=== PATIENT | male | born 1940 | race Caucasian/White ===

== ENCOUNTER → 2023-10-24 09:19 | Outpatient (REF) | payer OTHER, SELFPAY | LOC: RAD 09:19 | PROVIDERS: ATTENDING PHYSICIAN Emergency Medicine | DX: M25.552 Pain in left hip (principal); M54.50 Low back pain, unspecified | CPT/HCPCS: 72110; 73502 ==

== ENCOUNTER → 2023-11-02 14:15 | Outpatient (REF) | payer OTHER, SELFPAY | LOC: PAVMRI 14:15 | PROVIDERS: ATTENDING PHYSICIAN Physical Medicine & Rehabilitation; FAMILY PHYSICIAN Emergency Medicine | DX: M54.16 Radiculopathy, lumbar region (principal) | CPT/HCPCS: 72148 ==

== ENCOUNTER 2023-12-15 08:38 | Emergency (ER) | payer OTHER, SELFPAY ==
[2023-12-15 08:40] VITALS: BP 144/86
--- NOTE | 2023-12-15 09:43 | ED.GENMED ---
History of Present Illness
<Maria Teresa Rodriguez PA-C - Last Filed: 12/16/23 07:16>
General
Chief Complaint: Chest Pain
Source: patient
Exam Limitations: none
Time Seen by Provider: 12/15/23 09:17
Nursing documentation reviewed up to this point in time: agreed with
Travel History
Have you had any contact with someone who has COVID-19?: No
Do you have any symptoms of coronavirus? Fever > 100 degrees, chills, cough, shortness of breath, sore throat, loss of taste or smell, muscle aches, or headache?: No
History of Present Illness
History of Present Illness:
pt is a 83 y/o M with h/o CAD s/p stents 10+ years ago, afib chronically s/p watchman, no anticoagulation
dvt in past
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
here with right sided chest pain to back which started 6 am
pt was already awake when pain began. it is worse with palpiation slightly; it comes and goes but has undrelying mild constant discomfort
no nausea, diaphoresis, sob, leg swelling, syncope, fever,, cough
has had chest pains previously and thinks this is different
went to and was sent here
took full dose asa this morning
Past History
<Maria Teresa Rodriguez PA-C - Last Filed: 12/16/23 07:16>
Past History
ED Past Medical History: Arrthythmia (PAF), CAD, GERD, HTN, Hypercholesterolemia, NIDDM and Other (pancreatitis)
ED Past Surgical History: Cardiac (Stent X2, watchman procedure), Cholecystectomy, Orthopedic (b/l rotator cuff repairs, Herniated disc repair) and Other ( subtotal thyroidectomy (left), left cataract sx, L4/L5 disc surgery)
Patient has exhibited threatening behavior?: No
PSI?: No
Social History
Tobacco: Former smoker
Alcohol: None
Drug: None
Personal:
Living: with family
Family History
Family History: Other
Review of Systems
<Maria Teresa Rodriguez PA-C - Last Filed: 12/16/23 07:16>
Review of Systems
Allergies reviewed?: Yes
All Other Systems: Not applicable
Phy Exam
<LILLIAN Cornejo Last Filed: 12/16/23 07:16>
Physical Exam
Physical Exam:
GENERAL: Alert , in no apparent distress
EYE: pupils equal and reactive
NECK: Supple
ENT: o/p clr, mmm.
CARDIAC:irregularly irregular, normal rate
LUNGS: Clear breath sounds bilaterally, no acute respiratory distress, no wheezes/rales/rhonchi
chest wall: no rash
ABDOMEN: Soft, without focal tenderness, no r/g, no cvat, normal bowel sounds
NEUROLOGICAL: Alert and oriented, no focal neuro deficits
SKIN: Warm and dry, skin intact.
MUSCULOSKELETAL: No edema, well perfused. neg jen's sign
PSYCH: Normal and appropriate interaction.
Scores
<Maria Teresa Rodriguez PA-C - Last Filed: 12/16/23 07:16>
Heart Score for Chest Pain Patients
STEMI patient?: No
History: Slightly or Non-Suspicious
ECG: Nonspecific Repolarization
Age: >/= 65 years
Risk Factors: >/= 3 Risk Factors or History of CAD
Troponin: </= Normal Limit
Heart Score for Chest Pain Patients: 5
Heart Score Risk: 20.3% MACE over next 6 weeks
Course
<LILLIAN Cornejo Last Filed: 12/16/23 07:16>
Orders/Labs/Results
Orders:
Orders
12/15/23 08:41
EKG [Electrocardiogram (*1)] Urgent
Reason for Study: Chest Pain
EKG- Treatment ONCE
12/15/23 09:36
Acetaminophen [Tylenol] 650 mg PO NOW STA
12/15/23 09:41
Complete Blood Count/With Diff Urgent
Comprehensive Metabolic Panel Urgent
D-Dimer Urgent
Lipase Urgent
Troponin I Urgent
12/15/23 10:29
CR Chest - 2 Views Urgent
Comment:
Reason For Exam: ches t pain
12/15/23 11:51
Troponin I Urgent
12/15/23 12:03
Electrocardiogram (*1) Urgent
Reason for Study: Chest Pain
EKG- Treatment ONCE
Abnormal Lab Results
12/15/23
09:41
WBC 15.5 H 10^3/uL
(4.8-10.8)
Abs Immat Gran (auto) 0.1 H 10^3/uL
(0-0.05)
Absolute Neuts (auto) 12.6 H 10^3/uL
(1.4-6.5)
Absolute Monos (auto) 1.3 H 10^3/uL
(0.1-0.6)
Neutrophils % 81.5 H %
(42.2-75.2)
Lymphocytes % 9.2 L %
(20.5-51.1)
Chloride 108 H mmol/L
(98-107)
BUN 33 H mg/dl
(9-20)
Creatinine 1.6 H mg/dL
(0.7-1.3)
Glucose 143 H mg/dl
(70-99)
12/15/23 09:41
12/15/23 09:41
Vital Signs
Initial and Last Documented VS:
Initial Vital Signs
Temp Pulse Resp BP Pulse Ox
98.2 F 65 18 144/86 98
12/15/23 08:40 12/15/23 08:40 12/15/23 08:40 12/15/23 08:40 12/15/23 08:40
Last Documented Vital Signs
Temp Pulse Resp BP Pulse Ox
98.2 F 58 23 124/67 93
12/15/23 08:40 12/15/23 12:30 12/15/23 12:30 12/15/23 12:00 12/15/23 12:30
<Huey Cisneros DO - Last Filed: 12/15/23 12:30>
Orders/Labs/Results
Orders:
Orders
12/15/23 08:41
EKG [Electrocardiogram (*1)] Urgent
Reason for Study: Chest Pain
EKG- Treatment ONCE
12/15/23 09:36
Acetaminophen [Tylenol] 650 mg PO NOW STA
12/15/23 09:41
Complete Blood Count/With Diff Urgent
Comprehensive Metabolic Panel Urgent
D-Dimer Urgent
Lipase Urgent
Troponin I Urgent
12/15/23 10:29
CR Chest - 2 Views Urgent
Comment:
Reason For Exam: ches t pain
12/15/23 11:51
Troponin I Urgent
12/15/23 12:03
Electrocardiogram (*1) Urgent
Reason for Study: Chest Pain
EKG- Treatment ONCE
Abnormal Lab Results
12/15/23
09:41
WBC 15.5 H 10^3/uL
(4.8-10.8)
Abs Immat Gran (auto) 0.1 H 10^3/uL
(0-0.05)
Absolute Neuts (auto) 12.6 H 10^3/uL
(1.4-6.5)
Absolute Monos (auto) 1.3 H 10^3/uL
(0.1-0.6)
Neutrophils % 81.5 H %
(42.2-75.2)
Lymphocytes % 9.2 L %
(20.5-51.1)
Chloride 108 H mmol/L
(98-107)
BUN 33 H mg/dl
(9-20)
Creatinine 1.6 H mg/dL
(0.7-1.3)
Glucose 143 H mg/dl
(70-99)
12/15/23 09:41
12/15/23 09:41
Vital Signs
Initial and Last Documented VS:
Initial Vital Signs
Temp Pulse Resp BP Pulse Ox
98.2 F 65 18 144/86 98
12/15/23 08:40 12/15/23 08:40 12/15/23 08:40 12/15/23 08:40 12/15/23 08:40
Last Documented Vital Signs
Temp Pulse Resp BP Pulse Ox
98.2 F 58 23 124/67 93
12/15/23 08:40 12/15/23 12:30 12/15/23 12:30 12/15/23 12:00 12/15/23 12:30
<Maria Teresa Rodriguez PA-C - Last Filed: 12/16/23 07:16>
MDM/Problems Addressed
Differential Diagnosis Includes:
chest wall pain, ACS, less likely PE
MDM/Problems Addressed:
83 y/o M with h/o CAD here with pain that started right chest at 6 am after he was already awake
he has had ches tpains previously that were likely MSK but he thought this felt different
no fever, chills, cough, exertional symptoms, shortness of breath, vomiting, diarphoesis
pt is always in Afib
no edema in legs
well appearing, no distress, slightly anxious which is his baeline
rate controlled afib
no signs failure
w/u here with 2 neg trop 2 nonischemic ekgs, neg d dimer
cxr indep reviewed by me, hyperinflation otherwise normal
ptfeels well here
seen by ed attending
d/c home
<Maria Teresa Rodriguez PA-C - Last Filed: 12/16/23 07:16>
*Critical Care Note
Total Time (30-74mins, 75-104mins- exclusive of procedures): Not Applicable
ED Attending Note
<Maria Teresa Rodriguez PA-C - Last Filed: 12/16/23 07:16>
-
Portions of this chart may have been created with voice recognition software.� Occasional wrong word or��sound alike� substitutions may have occurred due to the inherent limitations of voice recognition software.
<Huey Cisneros DO - Last Filed: 12/15/23 12:30>
ED Attending Note
Patient seen and examined by attending physician: Yes
I performed the substantive portion of visit, reviewed & personally made and approve the management plan that is documented in note by myself or ROBERTO.: Yes
ED Attending Note:
Patient is a 3-year-old male who states that 5:30 AM he awoke with right-sided chest pain that was sharp. Patient states it was severe. Patient is unsure whether his heart not slightly went to urgent care who referred him to the emergency
department. Earlier this week patient did receive a steroid injection into his low back. The pain kept getting worse is what drove him to seek care. Patient denies shortness of breath, palpitations, diaphoresis. Patient denies any GI or
symptoms. Patient denies any recent illnesses or injuries. Patient has known atrial fibrillation and is not anticoagulated but has the Watchman device. Patient is doing well at this time. On physical exam the patient does not really appear to be
in any distress. Heart is irregular irregular and rhythm but normal rate. Chest is nontender. Lungs are clear. Patient has no neck vein distention. Abdomen soft nontender. Extremities without edema. Reviewed the labs and other workup as well
as EKG and believe this more musculoskeletal even though it is not reproducible but he is very active and works in the garden. Patient will be discharged. Patient was reassured that if he has chest pain to please return immediately.
Discharge Plan
Departure
Patient Disposition: Home (Routine Discharge)
Date of Disposition: 12/15/23
Time of Disposition: 12:27
Patient with high blood pressure during this ER visit?: Yes
Condition: Fair
Covid-19: Not Applicable
Discharge Problem:
Chest pain, non-cardiac
Instructions: Chest Pain That Is Not Caused by the Heart (DC)
Prescriptions:
No Action
metformin 500 MG tablet
500 mg PO BID
acetaminophen 325 MG tablet
650 mg PO Q4HPRN PRN (Reason: pain)
famotidine 40 MG tablet
40 mg PO DAILY
amlodipine 2.5 MG tablet
2.5 mg PO DAILY
aspirin 81 MG tablet,delayed release (DR/EC)
325 mg PO DAILY
pantoprazole 40 MG tablet,delayed release (DR/EC)
40 mg PO DAILY
simvastatin 20 MG tablet
20 mg PO QPM
lisinopril 40 MG tablet
40 mg PO BID
sertraline 50 MG tablet
50 mg PO DAILY
finasteride 5 MG tablet
5 mg PO DAILY
Centrum Silver Men 1 EACH tablet
1 ea PO DAILY
Glimepiride 2 MG Tablet
2 mg PO DAILY
lisinopril 40 mg tablet
40 mg PO DAILY Qty: 30 0RF
Referrals:
Leigha Darling MD [Family Provider] - Follow up in 2-3 days
Activity Restrictions/Additional Instructions:
YOUR WORK UP TODAY DID NOT SHOW ANY SIGNS OF EMERGENT CAUSES OF YOUR PAIN
YOU CAN TAKE TYLENOL 2-3 TIMES A DAY NEEDED
RETURN FOR ANY CONCERNS LIKE WORSE PAIN WITH WALKING, SHORTNESS OF BREATH, PASSING OUT, FEVER ETC.
Interventions
Interventions:
*Risk Screen - Suicide Last Done: 12/15/23 10:37
*General Assessment Last Done: 12/15/23 08:40
*Neglect/Abuse Screening Last Done: 12/15/23 10:37
*ED COVID-19 Vaccine History Last Done: 12/15/23 08:40
*Nursing Disposition Last Done: 12/15/23 12:45
ED- Cardiac Assessment Last Done: 12/15/23 10:37
Discharge Date and Time
Discharge Date/Time: 12/15/23 12:45
Print Language: SINHALA
[2023-12-15] MEDS: TYLENOL 650 MG PO (09:47)
[2023-12-15 09:49] VITALS: BP 140/86
[2023-12-15 09:53] LABS: % Basophils 0.2 % (0-2); % Eosinophils 0.1 % (0-6); % Immature Granulocytes 0.4 % (0-0.5); % Lymphocytes 9.2 % (20.5-51.1); % Monocytes 8.6 % (1.7-9.3); % Neutrophils 81.5 % (42.2-75.2); Absolute Immature Granulocytes 0.1 10^3/uL (0-0.05); Absolute Lymphocytes 1.4 10^3/uL (1.2-3.4); Absolute Monocytes 1.3 10^3/uL (0.1-0.6); Absolute Neutrophils 12.6 10^3/uL (1.4-6.5); Hematocrit 44.5 % (39.0-52.0); Hemoglobin 14.7 g/dL (13.0-18.0); Mean Corpuscular Hgb 30.9 pg (27.0-31.0); Mean Corpuscular Volume 93.7 fL (80.0-94.0); Mean Platelet Volume 9.7 fL (7.4-10.4); Nucleated Red Blood Cells % 0 % (-); Platelet Count 209 10^3/uL (130-400); Red Blood Cell Count 4.75 10^6/uL (4.70-6.10); Red Cell Dist. Width 13.8 % (11.5-14.5); White Blood Cell Count 15.5 10^3/uL (4.8-10.8)
[2023-12-15 10:00] VITALS: BP 130/76
[2023-12-15 10:13] LABS: ALT (SGPT) 22 U/L (0-50); AST (SGOT) 21 U/L (17-59); Alkaline Phosphatase 72 U/L (38-126); Blood Urea Nitrogen 33 mg/dl (9-20); Calcium 9.3 mg/dl (8.4-10.2); Carbon Dioxide 26 mmol/L (22-30); Chloride 108 mmol/L (98-107); Glucose 143 mg/dl (70-99); Lipase 73 U/L (23-300); Potassium 4.4 mmol/L (3.5-5.1); Sodium 141 mmol/L (135-145); Total Bilirubin 0.6 mg/dl (0.2-1.3); Total Protein 6.7 g/dl (6.3-8.2); eGFR 41.96
[2023-12-15 10:24] LABS: Troponin I < 0.012 ng/ml
[2023-12-15 11:50] VITALS: BP 132/101
[2023-12-15 12:00] VITALS: BP 124/67
[2023-12-15 12:24] LABS: Troponin I < 0.012 ng/ml
== END 2023-12-15 12:45 | disposition home or self-care (01) ==
LOC: EMR 08:38
PROVIDERS: Physician Assistant; EMERGENCY PHYSICIAN Emergency Medicine; FAMILY PHYSICIAN Emergency Medicine
DX: R07.89 Other chest pain (principal); I25.10 Atherosclerotic heart disease of native coronary artery without angina pectoris; I10 Essential (primary) hypertension; Z87.891 Personal history of nicotine dependence; I48.0 Paroxysmal atrial fibrillation
CPT/HCPCS: 99285; 71046; 80053; 83690; 84484; 85025; 85379; 93005

== ENCOUNTER 2024-04-22 15:30 | Emergency (ER) | payer OTHER, SELFPAY ==
[2024-04-22 15:33] VITALS: BP 160/97
--- NOTE | 2024-04-22 15:38 | ED.PDOC.TRB ---
ED Provider Triage
-
Patient seen by provider in Triage?: Seen in Triage
Attestation: A medical screening examination has been initiated by a qualified medical provider. Based on the assessment performed at this time, it has been determined that an emergent medical condition may exist and the patient has been informed
that further medical evaluation and possible additional diagnostic testing may be needed.
HPI: 83yoM here with a positive outpatient venous duplex. C/o atraumatic R leg pain x 3 days. No CP/SOB. No dizziness or syncope
GENERAL: Alert , in no apparent distress
EYE: No visual abnormalities.
NECK: Trachea midline
ENT: No visible abnormalities.
LUNGS: No acute respiratory distress
NEUROLOGICAL: Alert and oriented
SKIN: Skin intact. No visible changes.
MUSCULOSKELETAL: Moving extremities normally
PSYCH: Normal and appropriate interaction.
This is a medical evaluation conducted in person to initiate diagnostic evaluation and provide initial therapeutics. Please see further documentation by the treating clinician.
Will check CBC, CMP, and coags.
[2024-04-22 16:10] LABS: % Basophils 0.1 % (0-2); % Eosinophils 0.4 % (0-6); % Immature Granulocytes 0.4 % (0-0.5); % Lymphocytes 22.4 % (20.5-51.1); % Monocytes 12.9 % (1.7-9.3); % Neutrophils 63.8 % (42.2-75.2); Absolute Lymphocytes 1.7 10^3/uL (1.2-3.4); Absolute Neutrophils 4.8 10^3/uL (1.4-6.5); Hematocrit 42.1 % (39.0-52.0); Hemoglobin 14.3 g/dL (13.0-18.0); Mean Corpuscular Volume 91.1 fL (80.0-94.0); Mean Platelet Volume 9.3 fL (7.4-10.4); Nucleated Red Blood Cells % 0 % (-); Platelet Count 180 10^3/uL (130-400); Red Blood Cell Count 4.62 10^6/uL (4.70-6.10); Red Cell Dist. Width 13.7 % (11.5-14.5); White Blood Cell Count 7.5 10^3/uL (4.8-10.8)
[2024-04-22 16:21] LABS: INR 1.12; PT 14.3 Sec (11.4-14.6)
[2024-04-22 16:22] LABS: APTT 31.5 Sec (23.4-35.0)
[2024-04-22 16:28] LABS: ALT (SGPT) 18 U/L (0-50); AST (SGOT) 24 U/L (17-59); Alkaline Phosphatase 76 U/L (38-126); Blood Urea Nitrogen 29 mg/dl (9-20); Calcium 8.9 mg/dl (8.4-10.2); Carbon Dioxide 25 mmol/L (22-30); Chloride 103 mmol/L (98-107); Glucose 122 mg/dl (70-99); Sodium 141 mmol/L (135-145); Total Bilirubin 0.8 mg/dl (0.2-1.3); Total Protein 6.7 g/dl (6.3-8.2); eGFR 45.34
--- NOTE | 2024-04-22 17:42 | ED.GENMED ---
History of Present Illness
General
Chief Complaint: DVT/Possible Blood Clot
Time Seen by Provider: 04/22/24 17:03
History of Present Illness
History of Present Illness:
83-year-old male presents to the emergency department after a positive outpatient DVT study. Patient has had calf discomfort and swelling for the past several days, saw his primary care physician who referred him to the emergency department for
evaluation after an outpatient DVT study showed an occlusive thrombus in the distal femoral vein. He has no history of PE or DVT. Was previously on warfarin due to A-fib (states he could not afford Eliquis at that time) but has since had the
Watchman procedure.
Past History
Past History
ED Past Medical History: Arrthythmia (PAF), CAD, GERD, HTN, Hypercholesterolemia, NIDDM and Other (pancreatitis)
ED Past Surgical History: Cardiac (Stent X2, watchman procedure), Cholecystectomy, Orthopedic (b/l rotator cuff repairs, Herniated disc repair) and Other ( subtotal thyroidectomy (left), left cataract sx, L4/L5 disc surgery)
Patient has exhibited threatening behavior?: No
PSI?: No
Social History
Tobacco: Former smoker
Alcohol: None
Drug: None
Personal:
Living: with family
Family History
Family History: Other
Review of Systems
Review of Systems
Allergies reviewed?: Yes
All Other Systems: ROS reviewed and negative except as documented in HPI and ROS
Phy Exam
Physical Exam
Physical Exam:
GEN: Well appearing, NAD, WDWN
HEENT: Oral mucosa moist, no scleral icterus
Cardiac: Regular rate
Lung: No respiratory distress, no tachypnea
MSK: No gross deformity or injuries. Mild edema of the calf with minimal tenderness to the left posterior calf, no erythema or open wounds
Skin: Good color, no pallor or jaundice, no rashes
Neuro: AO x3, moves all extremities freely
Psych: Calm, cooperative
Course
Orders/Labs/Results
Orders:
Orders
04/22/24 15:43
Complete Blood Count/With Diff Urgent
Comprehensive Metabolic Panel Urgent
PTT Urgent
Prothrombin Time Urgent
04/22/24 17:47
Apixaban [Eliquis] 10 mg PO NOW STA
Abnormal Lab Results
04/22/24
15:43
RBC 4.62 L 10^6/uL
(4.70-6.10)
Absolute Monos (auto) 1.0 H 10^3/uL
(0.1-0.6)
Monocytes % 12.9 H %
(1.7-9.3)
BUN 29 H mg/dl
(9-20)
Creatinine 1.5 H mg/dL
(0.7-1.3)
Glucose 122 H mg/dl
(70-99)
04/22/24 15:43
04/22/24 15:43
Vital Signs
Initial and Last Documented VS:
Initial Vital Signs
Temp Pulse Resp BP Pulse Ox
97.9 F 56 16 160/97 99
04/22/24 15:33 04/22/24 15:33 04/22/24 15:33 04/22/24 15:33 04/22/24 15:33
Last Documented Vital Signs
Temp Pulse Resp BP Pulse Ox
97.9 F 58 18 158/70 98
04/22/24 15:33 04/22/24 18:10 04/22/24 18:10 04/22/24 18:10 04/22/24 18:10
MDM/Problems Addressed
MDM/Problems Addressed:
Outpatient DVT study reviewed. Will start the patient on DOAC. Communicated with his primary care physician for close outpatient follow-up. This is unprovoked so may need outpatient follow-up
*Critical Care Note
Total Time (30-74mins, 75-104mins- exclusive of procedures): Not Applicable
ED Attending Note
-
Portions of this chart may have been created with voice recognition software.� Occasional wrong word or��sound alike� substitutions may have occurred due to the inherent limitations of voice recognition software.
Discharge Plan
Departure
Patient Disposition: Home (Routine Discharge)
Date of Disposition: 04/22/24
Time of Disposition: 17:44
Patient with high blood pressure during this ER visit?: No
Discharge Problem:
Acute deep vein thrombosis (DVT) of left lower extremity
Instructions: Deep Vein Thrombosis (Blood Clots in the Legs) (DC)
Prescriptions:
New
Eliquis 5 mg tablet
5 mg PO BID Qty: 72 0RF
Rx Instructions:
10mg PO BID x 7d then 5mg PO BID
No Action
metformin 500 MG tablet
500 mg PO BID
acetaminophen 325 MG tablet
650 mg PO Q4HPRN PRN (Reason: pain)
famotidine 40 MG tablet
40 mg PO DAILY
amlodipine 2.5 MG tablet
2.5 mg PO DAILY
aspirin 81 MG tablet,delayed release (DR/EC)
325 mg PO DAILY
pantoprazole 40 MG tablet,delayed release (DR/EC)
40 mg PO DAILY
simvastatin 20 MG tablet
20 mg PO QPM
lisinopril 40 MG tablet
40 mg PO BID
sertraline 50 MG tablet
50 mg PO DAILY
finasteride 5 MG tablet
5 mg PO DAILY
Centrum Silver Men 1 EACH tablet
1 ea PO DAILY
Glimepiride 2 MG Tablet
2 mg PO DAILY
lisinopril 40 mg tablet
40 mg PO DAILY Qty: 30 0RF
Referrals:
Leigha Darilng MD [Active] - Follow up in 1 week
Interventions
Interventions:
*Nursing Disposition Last Done: 04/22/24 18:26
ED- Cardiac Assessment Last Done: 04/22/24 18:08
ED- Pulmonary Assessment Last Done: 04/22/24 18:08
ED-Peripheral Vascular Assessment Last Done: 04/22/24 18:08
ED-Skin Assessment Last Done: 04/22/24 18:08
Discharge Date and Time
Discharge Date/Time: 04/22/24 18:26
Print Language: BENGALI
[2024-04-22] MEDS: ELIQUIS 10 MG PO (17:58)
[2024-04-22 18:10] VITALS: BP 158/70
== END 2024-04-22 18:26 | disposition home or self-care (01) ==
LOC: EMR 15:30
PROVIDERS: Physician Assistant; EMERGENCY PHYSICIAN Emergency Medicine
DX: M79.604 Pain in right leg (principal); I48.91 Unspecified atrial fibrillation; I25.10 Atherosclerotic heart disease of native coronary artery without angina pectoris; K21.9 Gastro-esophageal reflux disease without esophagitis; I10 Essential (primary) hypertension; E78.00 Pure hypercholesterolemia, unspecified; E11.36 Type 2 diabetes mellitus with diabetic cataract; I82.402 Acute embolism and thrombosis of unspecified deep veins of left lower extremity; Z79.01 Long term (current) use of anticoagulants; Z87.891 Personal history of nicotine dependence; Z90.49 Acquired absence of other specified parts of digestive tract; Z95.5 Presence of coronary angioplasty implant and graft
CPT/HCPCS: 99284; 80053; 85025; 85610; 85730; 93971

== ENCOUNTER → 2024-08-14 07:17 | Outpatient (REF) | payer OTHER, SELFPAY | LOC: RAD 07:17 | PROVIDERS: ATTENDING PHYSICIAN Internal Medicine Hematology & Oncology; FAMILY PHYSICIAN Emergency Medicine | DX: I82.4Z2 Acute embolism and thrombosis of unspecified deep veins of left distal lower extremity (principal) | CPT/HCPCS: 93971 ==

== ENCOUNTER → 2024-09-18 09:15 | Outpatient (REF) | payer OTHER, SELFPAY | LOC: RAD 09:15 | PROVIDERS: ATTENDING PHYSICIAN Nurse Practitioner Family; FAMILY PHYSICIAN Emergency Medicine | DX: R58 Hemorrhage, not elsewhere classified (principal) | CPT/HCPCS: 76881 ==

== ENCOUNTER → 2024-11-18 15:09 | Outpatient (REF) | payer OTHER, SELFPAY | LOC: RAD 15:09 | PROVIDERS: ATTENDING PHYSICIAN Internal Medicine Hematology & Oncology; FAMILY PHYSICIAN Emergency Medicine | DX: I82.4Z2 Acute embolism and thrombosis of unspecified deep veins of left distal lower extremity (principal) | CPT/HCPCS: 93971 ==

== ENCOUNTER → 2024-12-11 10:16 | Outpatient (REF) | payer OTHER, SELFPAY | LOC: MRI 10:16 | PROVIDERS: ATTENDING PHYSICIAN Internal Medicine Gastroenterology; FAMILY PHYSICIAN Emergency Medicine | DX: K86.2 Cyst of pancreas (principal) | CPT/HCPCS: 74183; A9575 ==

== ENCOUNTER → 2025-01-30 13:55 | Outpatient (REF) | payer OTHER, SELFPAY | LOC: RAD 13:55 | PROVIDERS: ATTENDING PHYSICIAN Podiatrist; FAMILY PHYSICIAN Emergency Medicine | DX: I73.9 Peripheral vascular disease, unspecified (principal) | CPT/HCPCS: 93923; 93925 ==